=== PATIENT | female | born 1945 | race Hispanic/Latino ===

== ENCOUNTER → 2019-05-05 | Outpatient (CLI) | payer MEDICARE, BC ==
--- NOTE | 2019-05-05 12:43 | Diagnostic Imaging Report ---
EXAMINATION: SP LUMBAR, COMPLETE MIN 4VW INDICATION: Low back pain COMPARISON: None FINDINGS: AP, lateral, and left and right oblique images of the lumbar spine demonstrate no acute fracture. Multilevel degenerative changes of the lumbar spine most notably at L4-5 and L5-S1 where there is disc space narrowing, osteophyte formation, and facet arthropathy. L5 pars interarticularis defect on the right. Nonobstructive bowel gas pattern. No free air. Status post cholecystectomy. IMPRESSION: No acute osseous injury. Multilevel degenerative changes of the lumbar spine. L5 pars interarticularis defect on the right. Signed by: Dmitry Thompson MD on 05/05/2019 12:40 PM
== END ==
LOC: RAD 10:47
PROVIDERS: ATTEND Family Medicine
DX: M54.5 Low back pain (principal)
CPT/HCPCS: 72110

== ENCOUNTER → 2020-12-29 | Outpatient (CLI) | payer MEDICARE, BC | LOC: US 09:56 | PROVIDERS: ATTEND Family Medicine | DX: E04.1 Nontoxic single thyroid nodule (principal) | CPT/HCPCS: 76536 ==

== ENCOUNTER → 2021-03-29 | Outpatient (CLI) | payer MEDICARE, BC | LOC: US 10:01 | PROVIDERS: ATTEND Internal Medicine Endocrinology, Diabetes & Metabolism | DX: E04.2 Nontoxic multinodular goiter (principal) | CPT/HCPCS: 10005 ==